=== PATIENT | female | born 1975 | race Caucasian/White ===

== ENCOUNTER → 2023-09-26 11:39 | Outpatient (BNVA) | payer OTHER, SELFPAY | PROVIDERS: Visit Provider Family Medicine Adult Medicine | DX: R76.11 Nonspecific reaction to tuberculin skin test without active tuberculosis (principal) | CPT/HCPCS: 71046 ==

== ENCOUNTER → 2023-10-02 07:34 | Outpatient (BNVA) | payer OTHER, SELFPAY | PROVIDERS: Visit Provider Family Medicine Adult Medicine | DX: F33.8 Other recurrent depressive disorders (principal); Z87.891 Personal history of nicotine dependence; J44.9 Chronic obstructive pulmonary disease, unspecified; R76.11 Nonspecific reaction to tuberculin skin test without active tuberculosis; F32.9 Major depressive disorder, single episode, unspecified; F90.9 Attention-deficit hyperactivity disorder, unspecified type; F41.9 Anxiety disorder, unspecified | CPT/HCPCS: 80053; 80061; 84443; 85025 ==

== ENCOUNTER 2024-08-06 07:39 | Outpatient (CLI) | payer OTHER, SELFPAY ==
--- NOTE | 2024-08-06 08:00 | MM_ITS ---
WS: [id number] Bilateral screening 3D tomosynthesis digital mammogram, 08/06/2024 8:02 AM Clinical Data: screening Comparison: None. Findings: No spiculated masses or clustered calcifications are seen. There are no secondary signs of carcinoma. The bilateral augmentation mammoplasty implants are intact. MM/MM scr BI tomosynthesis [id number] Impression: Negative bilateral mammogram with no prior exam for review. Recommend annual screening mammograms. BIRADS: 2 - Benign FOLLOW UP: 1 Year Follow-up DENSITY: The breasts are heterogeneously dense, which may obscure small masses. The CAD process checker was used
== END 2024-08-06 07:40 | disposition home or self-care (01) ==
PROVIDERS: PCP Family Medicine; Visit Provider Family Medicine
DX: Z12.31 Encounter for screening mammogram for malignant neoplasm of breast (principal); Z98.82 Breast implant status; R92.333 Mammographic heterogeneous density, bilateral breasts
CPT/HCPCS: 77063; 77067

== ENCOUNTER 2024-09-07 07:44 | Day surgery (SDC) | payer OTHER, SELFPAY ==
[2024-09-07] MEDS: sodium chloride 0.9% 500 ML 15 ML IV (08:10)
[2024-09-07 08:11] VITALS: BP 100/80; PULSE 79; RESP 16; TEMP 36.4; O2SAT 98
--- NOTE | 2024-09-07 08:14 | P.ANESASSM_ITS ---
Pre-Anesthetic Assessment Height/Weight: Height 5 ft 9 in Preop Diagnosis: Screening colonoscopy Operation Date: 09/07/24 09:00 Proposed Procedures p Colonoscopy 97856 G0121 Z12.11(Not Applicable) - Sb Hung MD Was Beta Miguelangel taken within 24 hours: N/A Was Clonidine taken within 24 hours: N/A Social No alcohol and No tobacco Quit smoking 8 years ago Exam alert, oriented x 3, clear to auscultation bilaterally and regular rate & rhythm Airway Submandibular: within normal limits Cervical ROM: within normal limits Mallampati: Class I Dentition: full Comments: Comments: Few missing teeth on the bottom, denies any loose Anesthetic Plan ASA status: 2 Anesthesia: MAC Other: No prior issues with anesthesia Completed bowel prep Prior smoker, quit 8 years ago. Denies any cardiac issues GERD on omeprazole Plan for MAC anesthesia Medications/Allergies Home Medications ?Medication ?Instructions ?Recorded ?Confirmed ?Last Taken ?Type hydroxyzine pamoate 50 mg capsule 50 mg PO .q hs PRN s leep #90 caps 01/22/24 09/01/24 09/06/24 Rx omeprazole 20 mg capsule,delayed 20 mg PO DAILY #90 ca ps 07/26/24 09/01/24 09/06/24 Rx release dextroamphetamine-amphetamine 20 20 mg PO BID ADHD 30 days #60 tabs 08/24/24 09/01/24 09/06/24 Rx mg tablet (Adderall) Allergies Allergy/AdvReac Type Severity Reaction Status Date / Time No Known Allergies Allergy Verified 09/01/24 09:01 Current Medications Generic Name Dose Route Start Last Admin Trade Name Freq PRN Reason Stop Dose Admin Sodium Chloride 500 mls @ 15 mls/hr 09/07/24 07:59 09/07/24 08:10 Sodium Chloride 0.9% IV 09/08/24 07:58 15 mls/hr .Q24H PRN Administration COLONOSCOPY FLUIDS PFSH Anesthesia Medical History Polysubstance dependence, non-opioid, in remission no IV use; ETOH and meth/others/ no opioids PMDD (premenstrual dysphoric disorder) used sertraline in past Seasonal affective disorder Former smoker, stopped smoking in distant past Stop smoking ~ 2016; vapes COPD (chronic obstructive pulmonary disease) ADHD Anxiety Positive 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 following Surgical History Hx laparoscopic cholecystectomy S/P bilateral breast implants H/O dilation and curettage H/O umbilical hernia repair Hx of tubal ligation Family History Father Heart disease Cancer melanoma Grandmother Lung cancer Social History (Updated 08/16/24 @ 07:57 by BRIAN Jacobs) Smoking and tobacco/nicotine status: former use of tobacco/nicotine Alcohol intake: former Year of sobriety/quit date alcohol: 2022 Substance/Drug Use: former Date of last use: 2014 Former substance use details: no IV drug use; no opiates; meth Household members: other Details: ; lives with parents and her son Marital status: Marital status details: Number of children: 5 Highest education level completed: Master's Degree 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
[2024-09-07 08:16] LABS: OR HCG Qualitative Urine Negative (Negative)
--- NOTE | 2024-09-07 09:10 | W.PM.OPSUD ---
Surgery/Procedure H&P Update DATE OF PROCEDURE: September 07, 2024 DATE H&P PERFORMED: 08/16/24 H&P UPDATE INFORMATION: I have reviewed H&P completed within last 30 days, I have examined patient prior to procedure and No changes to prior documentation PREOP DIAGNOSIS: Screening colonoscopy PLANNED PROCEDURE: Operation Date: 09/07/24 09:00 Proposed Procedures p Colonoscopy 62418 G0121 Z12.11(Not Applicable) - Sb Hnug MD
[2024-09-07 09:30] VITALS: BP 86/64; PULSE 73; RESP 16; TEMP 36.1; O2SAT 97
[2024-09-07 09:37] VITALS: BMI 26.6
[2024-09-07 09:39] VITALS: BP 97/73; PULSE 74; RESP 18; O2SAT 97
--- NOTE | 2024-09-08 09:59 | ANE.PACU2 ---
Inpatient post-anesthesia follow up: Airway intact: Yes Vital signs: Temperature 97 F Pulse Rate 74 Respiratory Rate 18 Blood Pressure 97/73 Pulse Oximetry 97 Oxygen Delivery Me thod Room Air Oxygen Flow Rate Fraction of Inspir ed Oxygen Hydration adequate: Yes Nausea and vomiting: No Pain level: 1 Mental status: Baseline
== END 2024-09-07 09:59 | disposition home or self-care (01) ==
PROVIDERS: Student in an Organized Health Care Education/Training Program; PCP Family Medicine; Visit Provider Student in an Organized Health Care Education/Training Program
PROC: 0DJD8ZZ Inspection of Lower Intestinal Tract, Via Natural or Artificial Opening Endoscopic (ICD-10-PCS; CPT 45378; principal; 2024-09-07 09:00)
DX: Z12.11 Encounter for screening for malignant neoplasm of colon (principal); K57.31 Diverticulosis of large intestine without perforation or abscess with bleeding; K59.09 Other constipation; J44.9 Chronic obstructive pulmonary disease, unspecified; Z87.891 Personal history of nicotine dependence; Z79.899 Other long term (current) drug therapy; K08.409 Partial loss of teeth, unspecified cause, unspecified class; Z90.49 Acquired absence of other specified parts of digestive tract
CPT/HCPCS: 45378; 81025; J2704; J7040

== ENCOUNTER → 2024-10-11 10:24 | Outpatient (BNVA) | payer OTHER, SELFPAY | PROVIDERS: PCP Family Medicine; Visit Provider Family Medicine | DX: Z00.00 Encounter for general adult medical examination without abnormal findings (principal); Z12.4 Encounter for screening for malignant neoplasm of cervix; Z72.51 High risk heterosexual behavior | CPT/HCPCS: 87624 ==

== ENCOUNTER → 2024-10-12 13:10 | Outpatient (BNVA) | payer OTHER, SELFPAY | PROVIDERS: PCP Family Medicine; Visit Provider Family Medicine | DX: Z00.00 Encounter for general adult medical examination without abnormal findings (principal); Z72.51 High risk heterosexual behavior; Z11.59 Encounter for screening for other viral diseases; Z11.4 Encounter for screening for human immunodeficiency virus [HIV] | CPT/HCPCS: 80053; 80061; 84443; 85025; 86592; 86803; 87806 ==